=== PATIENT | male | born 1985 | race Caucasian/White ===

== ENCOUNTER 2016-05-29 10:57 | Emergency (ER) | payer OTHER ==
[~2016-05-29] VITALS: Ht 188 cm; Wt 95.5 kg
[~2016-05-29 10:57] MED LIST: ARIP20TA10 PO; BUPR-97 PO; CARB200T PO; CHLO100T22 PO; DIAZ10TA PO; HYDR-3825 PO; LITH300T2 PO
[2016-05-29 10:59] VITALS: BP 155/99; PULSE 79; RESP 15; O2SAT 100
--- NOTE | 2016-05-29 11:17 | ED.REPORT ---
HPI-Dyspnea / Wheezing Date of Service May 29, 2016 ED Provider: Matthew James MD Patient is a 30 year old male who presents to the ED due to SOB for 2 weeks. Pt describes it feels like he, "just can't get enough breath." When he woke up this morning and thought he was going to pass out. For the past couple days he has experienced, "tight and scary" chest pain. Associated symptoms include chills, diaphoresis, and increased lethargia. For the past year he's been tapering off of multiple psychiatric medications. He began lowering his Abilify dosage a month ago and reports that his breathing has, "been getting a lot worse ," since starting the withdrawal. His SOB has increased in severity over the 2 weeks and prevented him from working out. Pt denies cough, fever, and edema. Family hx of heart attacks in 50's. Nursing Notes Stated Complaint: DIFFICULTY BREATHING Chief Complaint: General Complaint Nursing Notes Reviewed: Yes ([employer] not reconciled) Allergies: Coded Allergies: Penicillins (Verified Allergy, Unknown, UNKNOWN, 09/03/15) amoxicillin (Verified Allergy, Unknown, UNKNOWN, 09/03/15) metoclopramide (Verified Adverse Reaction, Severe, Hallucinations, 09/03/15) hallucinations, feels out of control risperidone (Verified Adverse Reaction, Severe, PSYCHOSIS, 09/03/15) divalproex sodium (Verified Adverse Reaction, Unknown, PANCREATITIS, ) Scheduled Aripiprazole (Aripiprazole) 20 Mg Tablet 20 MG PO DAILY Bupropion ER (Wellbutrin XL) 150 Mg Tab.er.24h 150 MG PO DAILY Carbamazepine (Tegretol) 200 Mg Tablet 200 MG PO TID TAKES 400MG IN AM, 200MG @ NOON MEAL, 400MG @ HS Chlorpromazine (Chlorpromazine) 100 Mg Tablet 100 MG PO TID [place] Carbonate ([place] Carbonate) 300 Mg Tablet 300 MG PO TID Scheduled PRN Diazepam (Valium) 10 Mg Tablet 10 MG PO TID PRN PRN For Anxiety Hydrocodone-Acetaminophen 7.5-325 mg (Hydrocodone-Acetaminophen 7.5-325 mg) 1 Each Tablet 1 TABLET PO TID PRN PRN For Pain General Time Seen by MD: 11:16 Chief Complaint Shortness of breath Hx Obtained From: Patient Arrived By: Walk-in Onset Occurred: More than a week ago... (2 weeks) Symptom Duration: Since onset Location: : Chest left: Chest right Radiation: : Does not radiate Severity: Current: Mild Recent Healthcare: No recent doctor visit, No recent hospitalization Similar Sx Previous: No Past Medical History Past Medical History kidney stones Reports: Pancreatitis Past Surgical History denies Family History family hx of heart attacks in 50's Smoking History Former Smoker Social History Drug Use: Denies drug use, THC Other Social History: , Local resident Ambulatory Status Independent Review of Systems Constitutional: Reports: Chills, Lethargy, Malaise, Denies: Fever Respiratory: Reports: Shortness of breath, Denies: Non-productive cough Cardiovascular: Reports: Chest pain Musculoskeletal: Denies: Extremity swelling Skin: Reports Diaphoresis Complete sys rev & neg: except as marked. Physical Exam Initial Vital Signs Vital Signs (First) Date Time Temp Pulse Resp B/P Pulse Ox O2 Delivery O2 Flow Rate FiO2 05/29/16 10:59 37.3 79 15 155/99 100 Room Air Initial VS: Reviewed, Vital signs normal Head / Eyes: Atraumatic, Normocephalic, PERRL ENT: Mucous membranes moist, Conjunctiva normal, No scleral icterus Abdomen / GI: Soft, Non-tender, No guarding, No rebound, No distention Back: No CVA tenderness Extremities: Vascular intact, Neuro intact, No swelling, No tenderness Skin: Warm, Dry, No cyanosis Neurologic: Alert, Oriented, Nonfocal Psychiatric: Mood/affect normal, Behavior normal, Normal thought content General/Constitutional: Awake, Alert, No acute distress, Well appearing, Cooperative, Not toxic appearing Behavior: Positive: Anxious Neck: Atraumatic, Supple, No meningismus, Full range of motion, No swelling, Non-tender, No midline vertebral tend Respiratory / Chest: Atraumatic, Breath sounds NL, Breath sounds = bilat, No respiratory distress, No rales, No rhonchi, No wheezing, No retractions Cardiovascular: Heart rate NL, Regular rhythm, Heart sounds NL, No gallop, No murmurs, No rubs Interpretation & Diagnostics Lab Results Interpretation Result Diagram: 05/29/16 1200 05/29/16 1200 Test 05/29/16 12:00 White Blood Count 10.7th/mm3 (3.8-10.1) Red Blood Count 4.75mil/mm3 (4.40-5.80) Hemoglobin 15.5g/dL (13.8-17.2) Hematocrit 45.0% (41.0-50.0) Mean Corpuscular Volume 94.7fL (81-100) Mean Corpuscular Hemoglobin 32.6pg (27.0-35.0) Mean Corpuscular Hemoglobin Concent 34.4% (32.0-37.0) Red Cell Distribution Width 11.5% (12.3-15.4) Platelet Count 224bil/L (150-400) Neutrophils (%) (Auto) 73.6% (40-74) Lymphocytes (%) (Auto) 15.4% (14-46) Monocytes (%) (Auto) 10.2% (4-12) Eosinophils (%) (Auto) 0.4% (0-5) Basophils (%) (Auto) 0.2% (0-3) D-Dimer < 0.5mg/L (<0.50) Sodium Level 141mEq/L (134-144) Potassium Level 3.7mEq/L (3.5-5.2) Chloride Level 106mEq/L (97-108) Carbon Dioxide Level 17mmol/L (18-29) Blood Urea Nitrogen 12mg/dL (6-20) Creatinine 0.90mg/dL (0.76-1.27) Estimat Glomerular Filtration Rate 104mL/min (>59) Glucose Level 154mg/dL (60-99) Calcium Level 9.1mg/dL (8.5-10.1) Total Bilirubin 0.6mg/dL (0.0-1.2) Aspartate Amino Transf (AST/SGOT) 14U/L (0-50) Alanine Aminotransferase (ALT/SGPT) 9U/L (0-44) Alkaline Phosphatase 47U/L (25-150) Total Creatine Kinase 74U/L (21-232) Troponin T < 0.010ug/L (0.0-0.011) Total Protein 7.2g/dL (6.4-8.4) Albumin 4.6g/dL (3.4-5.0) Hold Sage Top Tube Received (Received) Lab Results Interpretation: CBC normal CMP notable for mildly low CO2 D-dimer negative troponin negative-patient has had continuous symptoms for days, repeat enzymes not indicated CPK negative with no evidence of rhabdomyolysis ECG Interpretation ECG Interpretation: no QT prolongation no Brugada syndrome no preexitation syndrome Time: 11:43 Interpreted by: ED physician Normal ECG Interpretation: Normal ECG w/ rate of... (91) X-Ray Chest Interpretation Chest Xray Interpretation: IMPRESSION: No acute cardiopulmonary findings. Dictated by: Angelica Sharpe M.D. on 05/29/2016 at 11:58 Approved by: Angelica Sharpe M.D. on 05/29/2016 at 12:02 View: Portable Interpretation / Wet Read by: Interpret - Radiologist Re-Eval/Medical Decision Med Decision/Clinical Course HEART Score 0 This is a 30-year-old male tends complaining of chest pain, shortness of breath , body aches, fatigue and feeling lousy for the past 2 weeks severely, but even longer on a milder scale. She reports she has been slowly weaned off a multitude of psychiatric medications, including Valium among others-and is on a loading dose of Abilify reports has been very difficult. I became concerned because he has did not develop, constant chest discomfort, shortness of breath at times feels very anxious-and became worried given the persistence and severity of symptoms. He is worried that he is going to -emesis even had difficulty sleeping as a result. He therefore came in to get checked out. The patient has no prior history of cardiopulmonary disease. No overt risk factors. His vitals are normal. His physical exam is normal except for a sense of anxiety, but his lungs are clear, as heart tones are normal, has no findings of heart failure clinically, no findings of venous thromboembolism. An EKG, 2 view chest x-ray, and blood work including d-dimer were negative. His troponin is negative, and his been symptomatic for duration section only a single enzyme is warranted-my overall suspicion for coronary disease or acute cardiac event is very low, the patient's score is 0. I have not been able to identify a dangerous cause of his symptoms attempted to provide reassurance. His worried about the anxiety when he has sleep, I recommended trial some diphenhydramine to help, as we discussed trying to avoid going back on benzodiazepines and all of the agents that he is just been carefully weaned off of. He does note that his taper was slow, deliberate in his been off the benzos now for over a month-side do not think this is david benzodiazepine withdrawal, but I do suspect a component of anxiety is present-as is the patient. The bottom line however is that I am not finding evidence of more severe cardiovascular pulmonary disease, and his vitals and laboratory and clinical evaluation are all reassuringly normal without finding that additional testing or high risk condition is present. Reassurance is provided. Routine precautions and discharge instructions reviewed with the patient. The patient' s discharged in good condition Source of Hx: Old records Re-Evaluation/Progress : Time of Eval: 14:38 Patient Status: Condition improved, Moderate relief Re-Evaluation/Progress Note: Pt rechecked. Condition improved, slight relief from pain. Differential Diagnosis: Negative: Acute coronary syndrome, Airway obstruction, COPD exacerbation, Carbon monoxide poisoning, Cardiogenic shock, Congestive heart failure, Hypertensive emergency, Myocardial infarction, PSVT, Pericarditis , Pneumonia, Pneumothorax, Pulmonary embolism, Respiratory failure Counseled Regarding: Diagnosis, Lab results, Need for follow-up, When/why to return to ED Discharge & Departure Impression: Primary Impression: Shortness of breath Additional Impressions: Anxiety Body aches Disposition: Home Discharge Condition All VS Reviewed: Yes Condition: Stable Additional Instructions: 1. A dangerous cause of her symptoms was not identified. Your heart test, lung test, and blood works were normal, except for test suggesting mild dehydration (not the cause of your symptoms) only. 2. There are no findings of heart or lung damage from your medications as the cause of the symptoms 3. Current wean off your medication Abilify as planned. 4. Activities as tolerated 5. You can take benadryl 25mg 1-2 tabs at bedtime (or up to every 6 hours) as needed to help with sense of anxiety or breathing. 6. If new or worsening symptoms return to the ED Referrals: Carlos Duong DO (PCP) Christa Attestation Portion of this note were transcribed by Soha Garcia. I, Dr. James, personally performed the history, physical exam, and medical decision-making: I reviewed and confirmed the accuracy for the information in the transcribed note. Signed by: christa Wang, 05/29/16 1500 copies to: Carlos Duong Matthew F MD May 29, 2016 11:17 Soha Garcia May 29, 2016 11:47
[2016-05-29] MEDS ORDERED: Albuterol 2.5 mg/3 mL Inhalation Solution NEB ONE (11:30)
[2016-05-29 11:44] VITALS: PULSE 88; RESP 18; O2SAT 99
--- NOTE | 2016-05-29 12:04 | DRSVH ---
PROCEDURE: X-RAY CHEST, TWO VIEWS ([id number]) INDICATIONS: Shortness of breath TECHNIQUE: 2 views of the chest were acquired. COMPARISON: None. FINDINGS: Surgical changes and devices: None. Lungs and pleura: No pleural effusions or pneumothorax. Lungs are clear. Mediastinum: Mediastinal contours are normal. Heart size is normal. Bones and chest wall: No suspicious bony abnormalities. Soft tissues appear unremarkable. IMPRESSION: No acute cardiopulmonary findings. Dictated by: Angelica Sharpe M.D. on 05/29/2016 at 11:58 Approved by: Angelica Sharpe M.D. on 05/29/2016 at 12:02
[2016-05-29 12:12] LABS: BASOPHILS % (AUTO) 0.2 % (0-3); EOSINOPHILS % (AUTO) 0.4 % (0-5); MONOCYTES % (AUTO) 10.2 % (4-12); Mean Corpuscular Hemoglobin 32.6 pg (27.0-35.0); Mean Corpuscular Volume 94.7 fL (81-100); NEUTROPHILS % (AUTO) 73.6 % (40-74); Platelet Count 224 bil/L (150-400)
[2016-05-29 12:52] LABS: Creatine Kinase 74 U/L (21-232)
[2016-05-29 13:03] LABS: TROPONIN T < 0.010 ug/L (0.0-0.011)
[2016-05-29 14:45] VITALS: BP 155/83; PULSE 71; RESP 18; O2SAT 98
[2016-05-29 15:37] VITALS: BP 155/83; PULSE 71; RESP 18; O2SAT 98
== END 2016-05-29 15:18 | disposition home or self-care (01) ==
LOC: SED 10:57
DX: F41.9 Anxiety disorder, unspecified (principal); Z87.891 Personal history of nicotine dependence; Z88.0 Allergy status to penicillin; Z88.1 Allergy status to other antibiotic agents; Z88.8 Allergy status to other drugs, medicaments and biological substances
CPT/HCPCS: 36415; 71020; 80053; 82550; 84484; 85025; 85379; 93005; 94664; 99285; J7613

== ENCOUNTER 2016-06-03 08:32 | Emergency (ER) | payer OTHER ==
[~2016-06-03] VITALS: Ht 188 cm; Wt 95.5 kg
[2016-06-03 08:33] VITALS: BP 167/87; PULSE 94; RESP 18; O2SAT 100
--- NOTE | 2016-06-03 08:47 | ED.REPORT ---
HPI-Abd Pain M Under 38 Date of Service Jun 03, 2016 ED Provider: Linda Zhou MD The patient is a 30 year old male w/ a hx of bipolar who presents to the ED due to abdominal pain. For the past year, he has been tapering off of multiple psychiatric medications and is currently down to 5 mg of Abilify. He reports his , "insides feel like they're failing me." Associated symptoms include chest pain and kidney pain. He has not been sleeping well and feels, "incredibly worn down." He is on a strict diet, no sugar, to help nunu symptoms. He denies a manic state but feels slightly hopeless. He was last seen at the ED for similar symptoms 05/29/16. Lab work was unremarkable and he did not have a Lipase drawn. Dr. Duong is his PCP. Nursing Notes Stated Complaint: ABDOMINAL PAIN Chief Complaint: Male Abdominal Pain Nursing Notes Reviewed: Yes Allergies: Coded Allergies: Penicillins (Verified Allergy, Unknown, UNKNOWN, 09/03/15) amoxicillin (Verified Allergy, Unknown, UNKNOWN, 09/03/15) metoclopramide (Verified Adverse Reaction, Severe, Hallucinations, 09/03/15) hallucinations, feels out of control risperidone (Verified Adverse Reaction, Severe, PSYCHOSIS, 09/03/15) divalproex sodium (Verified Adverse Reaction, Unknown, PANCREATITIS, ) Scheduled Aripiprazole (Abilify) 5 Mg Tablet 5 MG PO DAILY General Time Seen by MD: 08:46 Chief Complaint Abdominal pain Hx Obtained From: Patient Arrived By: Walk-in Sudden in Onset?: Yes Onset Occurred: Just prior to arrival Symptom Duration: Since onset Location: : Diffuse Quality: Aching, Painful Radiation: : Does not radiate Recent Healthcare: Recent doctor visit, Recent hospitalization Similar Sx Previous: Yes Past Medical History Past Medical History bipolar recurrent abdominal pain recurrent pancreatitis (not always associated with the recurrent abdomoinal pian) history of seizures kidney stones Reports: Pancreatitis Past Surgical History knee surgery Family History family hx of heart attacks in 50's Smoking History Former Smoker Social History Drug Use: Denies drug use, THC Other Social History: , Local resident Ambulatory Status Independent Review of Systems Cardiovascular: Reports: Chest pain GI: Reports: Abdominal pain Complete sys rev & neg: except as marked. Skin: Reports Diaphoresis Physical Exam Initial Vital Signs Vital Signs (First) Date Time Temp Pulse Resp B/P Pulse Ox O2 Delivery O2 Flow Rate FiO2 06/03/16 08:33 36.1 94 18 167/87 100 Room Air Initial VS: Reviewed Head / Eyes: Atraumatic, Normocephalic, PERRL ENT: Mucous membranes moist, Conjunctiva normal, No scleral icterus Extremities: Vascular intact, Neuro intact, No swelling, No tenderness Skin: Warm, Dry, No cyanosis General/Constitutional: Awake, Alert, Cooperative, Not toxic appearing good eye contact milldy diaphoretic Respiratory / Chest: Atraumatic, Breath sounds NL, Breath sounds = bilat, No respiratory distress, No rales, No rhonchi, No wheezing, No retractions Cardiovascular: Heart rate NL, Regular rhythm, Heart sounds NL, No gallop, No murmurs, No rubs Abdomen: Soft, Non-tender, No guarding, No rebound, BS normoactive mild LUQ epigastric pain Back: Atraumatic, Inspection NL, Full range of motion, Painless range of motion , Non-tender, No midline vertebral tend, No paraspinal tenderness, No CVA tenderness Psychiatric: Affect NL, Mood NL, Not suicidal, Not homicidal, No hallucinations , Cognitive function NL slightly pressured focused appropriate Interpretation & Diagnostics Lab Results Interpretation Result Diagram: 06/03/16 0915 06/03/16 0915 Test 06/03/16 09:00 06/03/16 09:15 06/03/16 09:20 Hold Urine Received (Received) White Blood Count 9.6th/mm3 (3.8-10.1) Red Blood Count 4.95mil/mm3 (4.40-5.80) Hemoglobin 16.4g/dL (13.8-17.2) Hematocrit 46.5% (41.0-50.0) Mean Corpuscular Volume 93.9fL (81-100) Mean Corpuscular Hemoglobin 33.1pg (27.0-35.0) Mean Corpuscular Hemoglobin Concent 35.3% (32.0-37.0) Red Cell Distribution Width 11.5% (12.3-15.4) Platelet Count 247bil/L (150-400) Neutrophils (%) (Auto) 69.1% (40-74) Lymphocytes (%) (Auto) 19.9% (14-46) Monocytes (%) (Auto) 10.1% (4-12) Eosinophils (%) (Auto) 0.5% (0-5) Basophils (%) (Auto) 0.3% (0-3) Sodium Level 139mEq/L (134-144) Potassium Level 3.8mEq/L (3.5-5.2) Chloride Level 102mEq/L (97-108) Carbon Dioxide Level 18mmol/L (18-29) Blood Urea Nitrogen 13mg/dL (6-20) Creatinine 0.96mg/dL (0.76-1.27) Estimat Glomerular Filtration Rate 96mL/min (>59) Glucose Level 176mg/dL (60-99) Calcium Level 9.2mg/dL (8.5-10.1) Magnesium Level 1.9mg/dL (1.6-2.6) Total Bilirubin 0.8mg/dL (0.0-1.2) Aspartate Amino Transf (AST/SGOT) 14U/L (0-50) Alanine Aminotransferase (ALT/SGPT) 10U/L (0-44) Alkaline Phosphatase 52U/L (25-150) Troponin T 0.010ug/L (0.0-0.011) Total Protein 7.1g/dL (6.4-8.4) Albumin 5.0g/dL (3.4-5.0) Lipase 30U/L (13-60) Hold Sage Top Tube Received (Received) ECG Interpretation Time: 10:06 Interpreted by: ED physician Normal ECG Interpretation: Normal rate (73), Normal sinus rhythm, No acute ischemic changes, Normal QRS, Normal axis, Normal intervals, No change from prior ECGs, Adequate tracing Re-Eval/Medical Decision Med Decision/Clinical Course Still encourage you to talk to you primary care physician about any further options. Re-Evaluation/Progress : Time of Eval: 11:06 Patient Status: Condition unchanged, No relief Re-Evaluation/Progress Note: Pt rechecked. His pain has not improved and he is still in a lot of pain. He did not want to take GI cocktail. Still somewhat pressured speech and mildly delusional thinking about his body rejecting medication. Counseled Regarding: Diagnosis, Lab results, Need for follow-up, When/why to return to ED Patient Discharge & Departure Primary Impression: Generalized abdominal pain Disposition: Home Discharge Condition All VS Reviewed: Yes Condition: Stable Additional Instructions: I am so sorry I do not have any answers for you today. I can tell you, there is no heart attack, no collapsed lungs, no acute infectious problems, no bleeding, no signs or need for surgery. There is no evidence of kidney infection or kdiney stones. I know you feel your body is rejecting the medications for your bipolar disorder at this time. I would still encourage yo uto talk to your primary care physician to see if there are perhaps other options that might be helpful. Return to the Emergency Department for any new or worsening symptoms. Referrals: Carlos Duong DO (PCP) Scribe Attestation Portion of this note were transcribed by Soha Garcia. I, Dr. Zhou, personally performed the history, physical exam, and medical decision-making: I reviewed and confirmed the accuracy for the information in the transcribed note. Signed by: christa Wang, 06/03/16 1200 copies to: Carlos Duong Shawna L MD Jun 03, 2016 08:47 Soha Garcia Jun 03, 2016 09:02
[2016-06-03] MEDS ORDERED: ARIP5TAB5 PO (08:54)
[2016-06-03] MEDS ORDERED: LidocaineVisc 2%:Antacid 1:1 10 mL Syringe PO ONE (09:05)
[2016-06-03] MEDS ORDERED: diphenhydrAMINE 2.5 mg/mL 5 mL Syrup ONE (09:18)
[2016-06-03] MEDS ORDERED: Alum-Mag Hydrox-Simeth 30 mL Suspension ONE (09:18)
[2016-06-03 09:26] LABS: BASOPHILS % (AUTO) 0.3 % (0-3); EOSINOPHILS % (AUTO) 0.5 % (0-5); MONOCYTES % (AUTO) 10.1 % (4-12); Mean Corpuscular Hemoglobin 33.1 pg (27.0-35.0); Mean Corpuscular Volume 93.9 fL (81-100); NEUTROPHILS % (AUTO) 69.1 % (40-74); Platelet Count 247 bil/L (150-400)
[2016-06-03 09:51] LABS: TROPONIN T 0.01 ug/L (0.0-0.011)
[2016-06-03 10:02] LABS: Magnesium 1.9 mg/dL (1.6-2.6)
[2016-06-03 11:24] VITALS: BP 125/82; PULSE 60; RESP 18; O2SAT 99
== END 2016-06-03 11:25 | disposition home or self-care (01) ==
LOC: SED 08:32
DX: R10.84 Generalized abdominal pain (principal); Z87.891 Personal history of nicotine dependence; Z88.0 Allergy status to penicillin; Z88.1 Allergy status to other antibiotic agents; Z88.8 Allergy status to other drugs, medicaments and biological substances

== ENCOUNTER 2016-11-06 18:36 | Emergency (ER) | payer OTHER ==
[~2016-11-06] VITALS: Ht 188 cm; Wt 92.0 kg
[~2016-11-06 18:36] MED LIST changes: -ARIP20TA10 PO; +ARIP5TAB5 PO; -BUPR-97 PO; -CARB200T PO; -CHLO100T22 PO; -DIAZ10TA PO; -HYDR-3825 PO; -LITH300T2 PO
[2016-11-06 18:52] VITALS: BP 160/105; PULSE 94; RESP 18; O2SAT 98
--- NOTE | 2016-11-06 19:18 | ED.REPORT ---
HPI-Trauma Minor / Fall Date of Service Nov 06, 2016 ED Provider: Dr. Landa Pt is a 31 y/o male with a hx of bipolar disorder who presents to the ED via EMS for a mental health evaluation. Pt reports losing his temper with his aunt who was a mother-figure to him because she told him that he has nothing to offer her. He became irate and police were called. When the police arrived he was startled and started to run. The police tackled him and he was taken to the ground. Pt is complaining of mild chest pain and mild left elbow pain secondary to the fall. He denies any suicidal or homicidal ideations. Patient admits to marijuana use but denies smoking. Nursing Notes Stated Complaint: MENTAL HEALTH EVAL Chief Complaint: Multiple Trauma/Fall Nursing Notes Reviewed: Yes Allergies: Coded Allergies: Penicillins (Verified Allergy, Unknown, UNKNOWN, 09/03/15) amoxicillin (Verified Allergy, Unknown, UNKNOWN, 09/03/15) diazepam (Verified Allergy, Unknown, 11/06/16) hydrocodone (Verified Allergy, Unknown, 11/06/16) metoclopramide (Verified Adverse Reaction, Severe, Hallucinations, 09/03/15) hallucinations, feels out of control risperidone (Verified Adverse Reaction, Severe, PSYCHOSIS, 09/03/15) divalproex sodium (Verified Adverse Reaction, Unknown, PANCREATITIS, ) Scheduled Aripiprazole (Abilify) 5 Mg Tablet 5 MG PO DAILY General Time Seen by MD: 19:18 Chief Complaint Other (Mental health evaluation) Hx Obtained From: Patient Arrived By: Ambulance Onset Occurred: Just prior to arrival Location: Chest Elbow left Quality: Painful Severity: Current: Mild Severity: Maximum: Mild Past Medical History Past Medical History bipolar recurrent abdominal pain recurrent pancreatitis (not always associated with the recurrent abdomoinal pian) history of seizures kidney stones Reports: Pancreatitis Past Surgical History knee surgery Family History family hx of heart attacks in 50's Smoking History Former Smoker Social History Drug Use: Denies drug use, THC Other Social History: , Local resident Ambulatory Status Independent Review of Systems Musculoskeletal: Reports: Extremity pain Complete sys rev & neg: except as marked. Cardiovascular: Reports: Chest pain Psychiatric: Reports: Agitation, Denies: Homicidal ideation, Suicidal ideation Physical Exam Initial Vital Signs Vital Signs (First) Date Time Temp Pulse Resp B/P Pulse Ox O2 Delivery O2 Flow Rate FiO2 11/06/16 18:52 36.2 94 18 160/105 98 Room Air Initial VS: Reviewed, Vital signs abnormal Head / Eyes: Atraumatic, Normocephalic ENT: Mucous membranes moist, Conjunctiva normal, No scleral icterus Abdomen / GI: Soft, Non-tender Skin: Warm, Dry, No cyanosis Neurologic: Alert, Oriented, Nonfocal General/Constitutional: Awake, Alert, No acute distress, Cooperative, Not toxic appearing Behavior: Positive: Anxious Respiratory / Chest: Breath sounds NL, Breath sounds = bilat, No respiratory distress, No rales, No rhonchi, No wheezing Left pectoralis muscle tender to palpation Cardiovascular: Regular rhythm, Heart sounds NL, No murmurs Heart Rate / Rhythm: Positive: Tachycardia Upper Extremity / MS: No deformity, Neurologic intact, Vascular intact Abrasions to left proximal forearm and elbow Normal ROM No bony tenderness Shoulder good ROM Psychiatric: Not suicidal, Not homicidal Abnormal Mood/Affect: Positive: Anxious Cooperative Slightly paranoid Coherent with proper insight Not agitated Interpretation & Diagnostics X-Ray Chest Interpretation Chest Xray Interpretation: IMPRESSION: No radiographic evidence of acute cardiopulmonary pathology. Dictated by: Fran Schwab M.D. on 11/06/2016 at 19:23 Approved by: Fran Schwab M.D. on 11/06/2016 at 19:24 View: Portable, AP & lat Interpretation / Wet Read by: Interpret - Radiologist CT Chest Interpretation Re-Eval/Medical Decision Med Decision/Clinical Course This patient was forced to come in, please sent in by ambulance. He is cooperative although slightly paranoid however he has not greatly disabled or acutely psychotic. He has a history of bipolar disorder and does not take his medications but he is well-kept and does not show any signs of severe depression or michael. He is organizing his thoughts and has some insight and judgment. He does not meet criteria for obtainment, he is not acutely suicidal , homicidal, or gravely disabled. He does have some physical injuries but pain medication. After his initial examination he said his left shoulder was hurting him more insulin x-ray was ordered however he refused the x-ray. His shoulder can be seen on chest x-ray, partially, and there is no sign of dislocation. The patient would not allow us to clean his wounds he cleaned them himself wash them with soap and water. He had chest pain after his fall there is no bruising to his chest and chest x-ray is negative I do not suspect a fracture given his physical exam and lack reproducible pain with compression of his lateral posterior ribs. Source of Hx: Old records Re-Evaluation/Progress : Time of Eval: 20:01 Re-Evaluation/Progress Note: Pt rechecked. During his course he complained of increasing L shoulder pain and felt like it was out of place. He initially agreed to the shoulder x-ray but then declined it. His shoulder appears to be properly in the joint on chest x-ray. Informed pt of plan for discharge. Pt understands and agrees with plan for discharge. F/U instructions and RTER warnings given. All questions addressed. Counseled Regarding: Diagnosis, Need for follow-up, When/why to return to ED Discharge & Departure Impression: Primary Impression: Fall Encounter type: initial encounter Qualified Code: W19.XXXA - Unspecified fall, initial encounter Additional Impression: Multiple abrasions Disposition: Home Discharge Condition All VS Reviewed: Yes Condition: Stable Patient Instructions: Acute Wound Care (GEN) Additional Instructions: Keep wounds clean and covered in antibiotic ointment. Return to the emergency department if you develop any signs of infection, fever , chills, pain, redness, swelling, discharge of pus, or for other concerning symptoms. Follow up with primary care as scheduled. Referrals: Carlos Duong DO (PCP) Zack Attestation Portions of this note were transcribed by Flor Andrea and Guido Matias. I, Dr. Landa personally performed the history, physical exam and medical decision- making; I reviewed and confirmed the accuracy of the information in the transcribed note. Signed by: Zack Way, 11/06/16 copies to: Carlos Duong Jena M MD Nov 06, 2016 19:18 Flor Andrea Nov 06, 2016 19:41 GUIDO MATIAS Nov 06, 2016 20:02
--- NOTE | 2016-11-06 19:26 | DRSVH ---
PROCEDURE: X-RAY CHEST, TWO VIEWS ([id number]) INDICATIONS: fall with chest pain, SOB TECHNIQUE: 2 views of the chest were acquired. COMPARISON: [facility], CR, XR CHEST 2VW, 05/29/2016, 11:33. FINDINGS: Surgical changes and devices: None. Lungs and pleura: No pleural effusions or pneumothorax. Lungs are clear. Mediastinum: Mediastinal contours are normal. Heart size is normal. Bones and chest wall: No suspicious bony abnormalities. Soft tissues appear unremarkable. IMPRESSION: No radiographic evidence of acute cardiopulmonary pathology. Dictated by: Fran Schwab M.D. on 11/06/2016 at 19:23 Approved by: Fran Schwab M.D. on 11/06/2016 at 19:24
[2016-11-06 20:09] VITALS: BP 153/99; PULSE 100; RESP 18; O2SAT 100
== END 2016-11-06 20:10 | disposition home or self-care (01) ==
LOC: EDBD 18:36 → SED 18:36 → EDUNIT# 18:36 → SED 20:10
DX: S50.312A Abrasion of left elbow, initial encounter (principal); S50.812A Abrasion of left forearm, initial encounter; R07.89 Other chest pain; Y35.813A Legal intervention involving manhandling, suspect injured, initial encounter; Y92.512 Supermarket, store or market as the place of occurrence of the external cause; Y93.02 Activity, running; Y99.8 Other external cause status; F31.9 Bipolar disorder, unspecified; F12.10 Cannabis abuse, uncomplicated; K86.1 Other chronic pancreatitis; Z87.442 Personal history of urinary calculi; Z87.891 Personal history of nicotine dependence; Z88.0 Allergy status to penicillin; Z88.1 Allergy status to other antibiotic agents; Z88.5 Allergy status to narcotic agent; Z88.8 Allergy status to other drugs, medicaments and biological substances

== ENCOUNTER 2016-11-07 06:01 | Emergency (ER) | payer OTHER ==
[~2016-11-07] VITALS: Ht 188 cm; Wt 92.7 kg
[2016-11-07 06:04] VITALS: BP 163/84; PULSE 107; RESP 16; O2SAT 99
--- NOTE | 2016-11-07 07:10 | ED.REPORT ---
HPI-Trauma Minor / Fall Date of Service Nov 07, 2016 ED Provider: Linda Zhou MD The pt is a 31 y/o male w/ a hx of bipolar disorder presenting to the ED complaining of L shoulder pain. He was seen here in the ED last night for the pain as well. Last night the pt got angry at his aunt, knocked over some chairs , and was tackled to the ground by police causing him the L shoulder pain. He has not taken any Ibuprofen because he feels like he needs to wet himself. Nursing Notes Stated Complaint: LT SHOULDER PAIN Chief Complaint: L shoulder pain Nursing Notes Reviewed: Yes Allergies: Coded Allergies: Penicillins (Verified Allergy, Unknown, UNKNOWN, 11/07/16) amoxicillin (Verified Allergy, Unknown, UNKNOWN, 11/07/16) diazepam (Verified Allergy, Unknown, 11/07/16) hydrocodone (Verified Allergy, Unknown, 11/07/16) metoclopramide (Verified Adverse Reaction, Severe, Hallucinations, 11/07/16 ) hallucinations, feels out of control risperidone (Verified Adverse Reaction, Severe, PSYCHOSIS, 11/07/16) divalproex sodium (Verified Adverse Reaction, Unknown, PANCREATITIS, ) Scheduled Aripiprazole (Abilify) 5 Mg Tablet 5 MG PO DAILY General Time Seen by MD: 06:10 Chief Complaint Other (L shoulder pain ) Hx Obtained From: Patient Arrived By: Walk-in Onset Occurred: Yesterday Symptom Duration: Since onset Recent Healthcare: No recent hospitalization, Recent doctor visit Similar Sx Previous: Yes Past Medical History Past Medical History bipolar recurrent abdominal pain recurrent pancreatitis (not always associated with the recurrent abdomoinal pian) history of seizures kidney stones Reports: Pancreatitis Past Surgical History knee surgery Family History family hx of heart attacks in 50's Smoking History Former Smoker Social History Drug Use: Denies drug use, THC Other Social History: , Local resident Ambulatory Status Independent Review of Systems Musculoskeletal: Reports: Joint pain (L shoulder ) Complete sys rev & neg: except as marked. Physical Exam Initial Vital Signs Vital Signs (First) Date Time Temp Pulse Resp B/P Pulse Ox O2 Delivery O2 Flow Rate FiO2 11/07/16 06:04 37.0 107 16 163/84 99 Room Air Initial VS: Reviewed Head / Eyes: Atraumatic, Normocephalic, PERRL ENT: Mucous membranes moist, Conjunctiva normal, No scleral icterus Respiratory: Breath sounds normal, Clear to auscultation, No respiratory distress Cardiovascular: Regular rate & rhythm, Heart sounds normal, Intact distal pulses Neurologic: Alert, Oriented, Nonfocal Psychiatric: Mood/affect normal, Behavior normal, Normal thought content General/Constitutional: Awake, Alert Neck: Atraumatic, Supple, Full range of motion Upper Extremity / MS: No deformity, Neurologic intact, Vascular intact Fullness in anterior portion of L shoulder that resembles effusion No erythema Skin: Warm, Dry Abrasion over L deltoid Abrasion to R forearm Interpretation & Diagnostics X-Ray Interpretation Xray Interpretation: IMPRESSION: 1. No acute fractures or dislocations. 2. Staple in or adjacent to the soft tissues of the anterior antecubital fossa. Dictated by: Fran Schwab M.D. on 11/07/2016 at 8:22 Approved by: Fran Schwab M.D. on 11/07/2016 at 8:23 X-Ray Ordered: Humerus left Interpretation / Wet Read by: Interpret - Radiologist Re-Eval/Medical Decision Counseled Regarding: Diagnosis, Lab results, Need for follow-up, When/why to return to ED Discharge & Departure Impression: Primary Impression: Left shoulder strain Encounter type: initial encounter Qualified Code: S46.912A - Strain of unspecified muscle, fascia and tendon at shoulder and upper arm level, left arm , initial encounter Additional Impression: Abrasion of arm, left Encounter type: initial encounter Qualified Code: S40.812A - Abrasion of left upper arm, initial encounter Disposition: Home Discharge Condition All VS Reviewed: Yes Condition: Stable Additional Instructions: I am glad you did not break your shoulder nor is it dislocated It will likely be sore over the next 2 days and then start feeling a bit better. I have given you a sling to help for comfort. You can use your shoulder as you can tolerate. Ibuprofen can be helpful for pain control. For the large abrasion on your arm using some topical antibiotic and keeping that covered for a day or 2 that he will quickly. Hope you feel better! Referrals: Carlos Duong DO (PCP) Scribe Attestation Portions of this note were transcribed by Vladimir Mesa. I, Dr. Zhou personally performed the history, physical exam and medical decision-making; I reviewed and confirmed the accuracy of the information in the transcribed note. copies to: Carlos Duong Shawna L MD Nov 07, 2016 07:09 Vladimir Mesa Nov 07, 2016 07:30
--- NOTE | 2016-11-07 08:26 | DRSVH ---
PROCEDURE: X-RAY LEFT HUMERUS, MINIMUM TWO VIEWS ([id number]) INDICATIONS: trauma TECHNIQUE: 2 views of the humerus were acquired. COMPARISON: None. FINDINGS: Bones: No fractures or dislocations. No suspicious bony lesions. Soft tissues: No suspicious soft tissue calcifications. There is a staple in or adjacent to soft ti ssues of the anterior left antecubital fossa. IMPRESSION: 1. No acute fractures or dislocations. 2. Staple in or adjacent to the soft tissues of the anterior antecubital fossa. Dictated by: Fran Schwab M.D. on 11/07/2016 at 8:22 Approved by: Fran Schwab M.D. on 11/07/2016 at 8:23
== END 2016-11-07 09:15 | disposition home or self-care (01) ==
LOC: SED 06:01
DX: S46.912A Strain of unspecified muscle, fascia and tendon at shoulder and upper arm level, left arm, initial encounter (principal); S40.812A Abrasion of left upper arm, initial encounter; Y35.813A Legal intervention involving manhandling, suspect injured, initial encounter; Y93.89 Activity, other specified; Y92.9 Unspecified place or not applicable; Y99.8 Other external cause status; F31.9 Bipolar disorder, unspecified; Z87.891 Personal history of nicotine dependence; Z88.0 Allergy status to penicillin; Z88.5 Allergy status to narcotic agent